=== PATIENT | male | born 1955 | race Caucasian/White ===

== ENCOUNTER 2017-08-27 04:26 | Emergency (ER) | payer OTHER ==
[~2017-08-27] VITALS: Ht 177.8 cm; Wt 126.1 kg
[2017-08-27 04:44] LABS: BASO % 0.4 % (0.0-1.0); EOS # 0.1 10*3/uL (0.0-0.4); EOS % 0.9 % (1.0-4.0); HEMATOCRIT 44.9 % (42.0-52.0); HEMOGLOBIN 15.1 g/dl (14.0-18.0); LYMPH % 12.4 % (27.0-41.0); MEAN CELL VOLUME 85.2 fl (80.0-94.0); MEAN CORPUSCULAR HGB 28.7 pg (27.0-31.0); MEAN CORPUSCULAR HGB CONC 33.6 g/dl (33.0-37.0); MEAN PLATELET VOLUME 10.9 fl (9.6-12.3); MONO # 0.5 10*3/uL (0.1-1.0); MONO % 6.8 % (3.0-9.0); NEUT # 6.3 10*3/uL (2.3-7.9); PLATELET COUNT AUTOMATED 98 10*3/uL (130-400); RED BLOOD COUNT 5.27 10*6/uL (4.50-5.90); RED CELL DISTRI WIDTH 14.2 % (0-14.5); WHITE BLOOD COUNT 7.9 10*3/uL (4.8-10.8)
[2017-08-27 04:54] LABS: ACT PARTIAL THROMBO TIME 20.9 SECONDS (20.8-31.5)
[2017-08-27 05:02] LABS: ALBUMIN 3.9 gm/dl (3.1-4.5); ALKALINE PHOSPHATASE 75 U/L (45-117); BUN 19 mg/dl (7-24); CHLORIDE 102 mmol/L (98-107); CREATININE 1.25 mg/dL (0.70-1.30); LIPASE 378 U/L (73-393); POTASSIUM 4.8 mmol/L (3.5-5.1); SGOT/AST 18 IU/L (3-35); SGPT/ALT 29 U/L (12-78); SODIUM 136 mmol/L (136-145); TOTAL PROTEIN 7.5 gm/dL (6.4-8.2)
[2017-08-27 06:08] LABS: BILIRUBIN NEGATIVE (NEGATIVE); BLOOD 3+ (NEGATIVE); CLARITY SL CLOUDY (CLEAR); COLOR YELLOW (YELLOW); GLUCOSE 3+ (NEGATIVE); KETONE NEGATIVE (NEGATIVE); LEUKO ESTERASE NEGATIVE (NEGATIVE); NITRITE NEGATIVE (NEGATIVE); PH 5.5 (5.0-9.0); SPECIFIC GRAVITY <= 1.005 (1.005-1.030); UROBILINOGEN 0.2 E.U./dl (0.2-1.0)
[2017-08-27 06:44] LABS: BACTERIA TRACE; RBC 16-20 rbc/hpf (0-2)
== END 2017-08-27 06:30 | disposition home or self-care (01) ==
LOC: ED 04:26
PROVIDERS: Student in an Organized Health Care Education/Training Program
DX: R10.9 Unspecified abdominal pain (principal); R11.2 Nausea with vomiting, unspecified; K92.1 Melena

== ENCOUNTER 2017-12-19 12:39 | Emergency (ER) | payer OTHER ==
[~2017-12-19] VITALS: Ht 177.8 cm; Wt 127.0 kg
[2017-12-19] MEDS ORDERED: ROBAXIN500 M1 PO (14:50)
[2017-12-19] MEDS ORDERED: MEDROL DOSEPAK4 MG PO (14:50)
== END 2017-12-19 15:17 | disposition home or self-care (01) ==
LOC: ED 12:39
DX: S39.012A Strain of muscle, fascia and tendon of lower back, initial encounter (principal); X50.1XXA Overexertion from prolonged static or awkward postures, initial encounter; Y93.89 Activity, other specified; Y92.89 Other specified places as the place of occurrence of the external cause; Y99.8 Other external cause status

== ENCOUNTER 2018-03-14 03:45 | Emergency (ER) | payer OTHER ==
[~2018-03-14] VITALS: Ht 177.8 cm; Wt 77.1 kg
--- NOTE | ~2018-03-14 | EKG ---
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
[~2018-03-14 03:45] MED LIST: MEDROL DOSEPAK4 MG PO; ROBAXIN500 M1 PO
[2018-03-14] MEDS ORDERED: GLIPIZIDE XL10 M1 PO (03:53)
[2018-03-14] MEDS ORDERED: ATORVASTATIN CA20 M1 PO (03:53)
[2018-03-14] MEDS ORDERED: METFORMIN ER500 MG PO (03:54)
[2018-03-14] MEDS ORDERED: METOPROLOL SUCC50 M1 PO (03:54)
[2018-03-14 04:21] LABS: BASO % 0.5 % (0.0-1.0); EOS # 0.1 10*3/uL (0.0-0.4); EOS % 1.7 % (1.0-4.0); HEMATOCRIT 42.6 % (42.0-52.0); HEMOGLOBIN 14.5 g/dl (14.0-18.0); LYMPH # 1.3 10*3/uL (1.3-4.4); LYMPH % 16.2 % (27.0-41.0); MEAN CELL VOLUME 84.4 fl (80.0-94.0); MEAN CORPUSCULAR HGB 28.7 pg (27.0-31.0); MEAN PLATELET VOLUME 10.5 fl (9.6-12.3); MONO # 0.8 10*3/uL (0.1-1.0); MONO % 9.7 % (3.0-9.0); NEUT # 5.8 10*3/uL (2.3-7.9); NEUT % 71.4 % (47.0-73.0); PLATELET COUNT AUTOMATED 130 10*3/uL (130-400); RED BLOOD COUNT 5.05 10*6/uL (4.50-5.90); RED CELL DISTRI WIDTH 13.9 % (0-14.5); WHITE BLOOD COUNT 8.2 10*3/uL (4.8-10.8)
[2018-03-14 04:38] LABS: ALBUMIN 3.3 gm/dl (3.1-4.5); ALKALINE PHOSPHATASE 79 U/L (45-117); BUN 15 mg/dl (7-24); CHLORIDE 107 mmol/L (98-107); CREATININE 0.85 mg/dL (0.70-1.30); SGOT/AST 16 IU/L (3-35); SGPT/ALT 26 U/L (12-78); SODIUM 138 mmol/L (136-145); TOTAL PROTEIN 7.4 gm/dL (6.4-8.2); TROPONIN I < 0.015 ng/ml (<0.045)
[2018-03-14] MEDS ORDERED: OMNICEF300 MG PO (04:52)
[2018-03-14] MEDS ORDERED: PREDNISONE10 MG PO (04:52)
== END 2018-03-14 05:16 | disposition home or self-care (01) ==
LOC: ED 03:45
PROVIDERS: Emergency Medicine Emergency Medical Services
DX: J20.9 Acute bronchitis, unspecified (principal); Z79.899 Other long term (current) drug therapy

== ENCOUNTER 2019-01-07 11:15 | Inpatient (IN) | payer OTHER ==
[~2019-01-07] VITALS: Ht 177.8 cm; Wt 119.8 kg
--- NOTE | ~2019-01-07 | CON ---
[place], [place] REPORT OF CONSULTATION NAME: VALENTINE CANNON UNIT #: [id number] ROOM: 404 DOCTOR: CORI OLIVEIRAHORACIO BIRTHDATE: [birth year] DOS: 01/08/2019 GASTROENDOSCOPIC REPORT INDICATIONS: A 63-year-old patient who has presented with epigastric pain, abdominal pain, black tarry stool. The patient has been taking 800 mg ibuprofen tablets for dental pain, then he has had dental extractions and 3 tablets of 800 a day. At the time of admission, his CBC differential, white blood cell was 9, H and H of 14 and 43. Lipase was normal. BNP 230. Lactic acid normal. Chest x-ray was self-limited pleural effusion. Comprehensive metabolic panel: GFR greater than 60. Liver function tests normal and was 1.0. CT scan of the abdomen and pelvis calcific gallstone, no biliary duct dilation. The cyst of the right kidney antral thickening, diverticulosis all has been noticed. Troponin remained normal. PAST MEDICAL HISTORY: Obesity, hypertension, coronary artery disease, depression, diabetes. PAST SURGICAL HISTORY: Teeth extraction and cardiac catheterization, bypass x 3 vessels. SOCIAL HISTORY: Past smoker. Nonalcohol consumer. FAMILY HISTORY: Noncontributory. ALLERGIES: No known medications. MEDICATIONS: List otherwise was reviewed. REVIEW OF SYSTEMS: HEENT: Denies double vision, blurred vision. RESPIRATORY: Denies shortness of breath. CARDIOVASCULAR: Denies chest pain. DIGESTIVE SYSTEM: Epigastric abdominal pain, black tarry stool. PHYSICAL EXAMINATION: VITAL SIGNS: Stable. HEENT: Benign. NECK: Supple, no thyromegaly. CHEST: Symmetric anatomy, equal expansion. No wheeze, no rhonchi. HEART: Normal sinus rhythm, no gallop, no murmur. ABDOMEN: Obese, large, soft. No hepato-organomegaly. Bowel sounds present. EXTREMITIES: No cyanosis, no pedal edema. NEUROLOGIC: Alert, oriented to time, place, person. IMPRESSION: Black tarry stool, most likely secondary to ibuprofen 800 mg 3 tablets a day for dental pain; however, his latest CBC differential has not significantly compromised. Latest H and H 13 and 41. PLAN AND DISCUSSION: Endoscopic assessment of upper GI tract, particularly in [place], [place] REPORT OF CONSULTATION NAME: VALENTINE CANNON UNIT #: [id number] ROOM: 404 DOCTOR: CORI OLIVEIRA,HORACIO BIRTHDATE: [birth year] view of the fact that the patient has thickened gastric pouch will be concerned if ibuprofen, induction of ulceration or hemorrhagic gastritis. OTHER ADJUNCTIVE DIAGNOSES: As outlined above in paragraph of past medical, surgical history. HORACIO PERSAUD MD CM:CONSTR:REPORT OF CONSULTATION 1115 01/08/19 1627 interface
--- NOTE | ~2019-01-07 | EKG ---
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1955 Requested By: KIARA PRIEST Order Number: [id number] Reading MD: Talon Davidson MD Measurements Intervals [place] Rate: 59 P: 12 ME: 214 QRS: 3 QRSD: 98 T: -1 QT: 437 QTc: 433 Interpretive Statements Sinus rhythm Borderline prolonged ME interval Probable anteroseptal infarct, old Borderline T abnormalities, inferior leads Compared to ECG 03/14/2018 04:24:39 Myocardial infarct finding now present Ventricular premature complex(es) no longer present T-wave abnormality still present Electronically Signed On 01-08-2019 17:29:17 PDT by Talon Davidson MD CM:EKGRPT:ELECTROCARDIOGRAM REPORT [id number] 1729 KIARA KENNEDY DRAFT REPORT KIARA PRIEST DO
--- NOTE | ~2019-01-07 | O ---
[place], [place] OPERATIVE NOTE NAME: VALENTINE CANNON UNIT #: [id number] ROOM: 404 DOCTOR: HORACIO PERSAUD MD BIRTHDATE: [birth year] DOS: 01/08/2019 INDICATIONS: The patient is a 63-year-old who has presented with chief complaint of black tarry stool. The patient has been on ibuprofen 800 mg tablets 3 times a day after his dental extractions. PROCEDURE: Today's procedure part of investigation is panendoscopy plus biopsies. PREMEDICATION: Propofol. SCOPE: Olympus forward-viewing gastroscope Q10 video. DESCRIPTION OF PROCEDURE: After putting the patient in left lateral position, application of lubricant to the scope, the scope was introduced. Thereafter, under direct visualization, advanced through the length of esophagus without difficulty. Gastric pouch was entered. Multiple antral ulcerations identified, photographed. Duodenum was entered. Multiple duodenal bulb and second part of the duodenum ulcers were identified, photographed. Antral biopsy obtained from margin of the ulcer. GI reflexion of the scope reveals cardia to be benign. The patient extubated, tolerated the procedure well. IMPRESSION: Multi gastroduodenal ulcers secondary to ibuprofen intake. PLAN AND DISCUSSION: Protonix 40 mg IV b.i.d., Carafate 2 grams slurry q.i.d. with holding ibuprofen. Clinical reassessment. HORACIO PERSAUD MD CM:OPRECORD:OPERATIVE NOTE 1131 1201 HORACIO PERSAUD MD 01/08/19 1159 interface
--- NOTE | ~2019-01-07 | EKG ---
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
--- NOTE | ~2019-01-07 | EKG ---
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
[~2019-01-07 11:15] MED LIST changes: +ATORVASTATIN CA20 M1 PO; +GLIPIZIDE XL10 M1 PO; +METFORMIN HCL500 M2 PO; +METOPROLOL SUCC50 M1 PO; +OMNICEF300 MG PO; +PREDNISONE10 MG PO; +ZITHROMAX250 MG PO
[2019-01-07 11:17] VITALS: BP 128/62
[2019-01-07 11:47] LABS: BASO % 0.3 % (0.0-1.0); EOS % 0.1 % (1.0-4.0); HEMATOCRIT 43.7 % (42.0-52.0); HEMOGLOBIN 14.4 g/dl (14.0-18.0); LYMPH # 0.6 10*3/uL (1.3-4.4); LYMPH % 6.5 % (27.0-41.0); MEAN CELL VOLUME 85.9 fl (80.0-94.0); MEAN CORPUSCULAR HGB 28.3 pg (27.0-31.0); MEAN PLATELET VOLUME 11.3 fl (9.6-12.3); MONO # 0.3 10*3/uL (0.1-1.0); NEUT # 8.4 10*3/uL (2.3-7.9); NEUT % 89.6 % (47.0-73.0); PLATELET COUNT AUTOMATED 123 10*3/uL (130-400); RED BLOOD COUNT 5.09 10*6/uL (4.50-5.90); RED CELL DISTRI WIDTH 14.2 % (0-14.5); WHITE BLOOD COUNT 9.4 10*3/uL (4.8-10.8)
[2019-01-07 12:01] LABS: ACT PARTIAL THROMBO TIME 23.5 SECONDS (20.0-32.1)
[2019-01-07 12:01] LABS: ALBUMIN 3.9 gm/dl (3.1-4.5); ALKALINE PHOSPHATASE 62 U/L (45-117); BUN 15 mg/dl (7-24); CHLORIDE 104 mmol/L (98-107); CREATININE 0.97 mg/dL (0.70-1.30); POTASSIUM 5.1 mmol/L (3.5-5.1); SGOT/AST 20 IU/L (3-35); SGPT/ALT 28 U/L (12-78); SODIUM 136 mmol/L (136-145)
[2019-01-07 12:02] LABS: TROPONIN I < 0.015 ng/ml (<0.045)
[2019-01-07 12:11] VITALS: BP 125/55
--- NOTE | 2019-01-07 12:20 | NUR ---
PT RESTING IN BED COMFORTABLY. IN NO ACUTE DISTRESS
[2019-01-07 16:01] VITALS: BP 132/74
[2019-01-07 16:34] VITALS: BP 126/62
[2019-01-07] MEDS ORDERED: TRESIBA FL200 UNIT/1 SQ (16:53)
[2019-01-07] MEDS ORDERED: CITALOPRAM20 MG PO (16:54)
[2019-01-07] MEDS ORDERED: AMLODIPINE BESY10 MG PO (16:55)
[2019-01-07] MEDS ORDERED: IMDUR SA30 MG PO (16:56)
[2019-01-07] MEDS ORDERED: LOSARTAN POTASS50 M1 PO (16:56)
[2019-01-07] MEDS ORDERED: AMOXICILLIN500 M2 PO (16:57)
[2019-01-07 17:05] VITALS: BP 114/60
--- NOTE | 2019-01-07 17:05 | NUR ---
A 63, admitted to , under the services of MARIAH Reina DO with a diagnosis of UGI BLEED. Chief complaint is ABDOMINAL PAIN. Patient arrived via stretcher from ER. Monitor applied. Initial assessment completed. Vital signs taken and recorded. MARIAH REINA DO notified of admission to the unit. Orders received. See assessment for past medical history, medications and allergies. Patient and/or family oriented to unit. [facility] visitation policy reviewed. Clothing/patient valuable form completed. SHANI SAN
[2019-01-07] MEDS ORDERED: ASPIRIN ADULT L81 M1 PO (18:30)
--- NOTE | 2019-01-07 18:38 | NUR ---
DR. PERSAUD AWARE OF CONSULT.
[2019-01-07 20:00] VITALS: BP 126/56
--- NOTE | 2019-01-07 20:09 | NUR ---
PT. REMINDED OF NPO STATUS FOR EGD IN AM
[2019-01-08] VITALS (9 sets, daily range): BP systolic 123–158; BP diastolic 57–83
[2019-01-08 07:04] LABS: BASO # 0.1 10*3/uL (0.0-0.1); BASO % 0.6 % (0.0-1.0); EOS # 0.1 10*3/uL (0.0-0.4); EOS % 1.1 % (1.0-4.0); HEMATOCRIT 41.5 % (42.0-52.0); HEMOGLOBIN 13.6 g/dl (14.0-18.0); LYMPH # 1.5 10*3/uL (1.3-4.4); LYMPH % 18.4 % (27.0-41.0); MEAN CELL VOLUME 84.7 fl (80.0-94.0); MEAN CORPUSCULAR HGB 27.8 pg (27.0-31.0); MEAN CORPUSCULAR HGB CONC 32.8 g/dl (33.0-37.0); MONO # 0.6 10*3/uL (0.1-1.0); MONO % 7.5 % (3.0-9.0); PLATELET COUNT AUTOMATED 125 10*3/uL (130-400); RED CELL DISTRI WIDTH 14.4 % (0-14.5); WHITE BLOOD COUNT 8.4 10*3/uL (4.8-10.8)
[2019-01-08 07:35] LABS: BUN 12 mg/dl (7-24); CHLORIDE 108 mmol/L (98-107); CHOLESTEROL 83 mg/dL (<200); CREATININE 0.97 mg/dL (0.70-1.30); HDL CHOLESTEROL 33 mg/dl (40-60); LDL CHOLESTEROL 28 mg/dL (9-159); SODIUM 140 mmol/L (136-145); TRIGLYCERIDES 112 mg/dl (<150); VLDL CHOLESTEROL 22 mg/dL (6-40)
[2019-01-08 07:43] LABS: VITAMIN D, 25-HYDROXY 21.2 ng/mL (30-100)
[2019-01-08 07:47] LABS: POTASSIUM 3.7 mmol/L (3.5-5.1)
--- NOTE | 2019-01-08 09:00 | NUR ---
Bed Rubber in to talk to patient. Patient states lives at home with . There are few steps in the home. Physician: clemente pro Pharmacy: [facility] Home health services: none Patient's level of ADLs: INDEPENDENT Patient has working utilities: all working DME: none Follow-up physician's appointment after d/c: will be made by hospitalist nurse director upon discharge Does patient want to access PORTAL?: no Discharge plan discussed with patient, he states he lives at home with , is independentin adls and ambulation, states he will return home when medically stable and denies any home needs. ALYSSA HAMLIN
--- NOTE | 2019-01-08 09:33 | NUR ---
Occupational therapy orders received and chart reviewed. Patient admitted for stomach pain with a history of CAD, depression, and tooth extraction. Patient stated he is independent with ADLs, functional transfers, and mobility. Patient stated he has not had any LOBs or decrease in strength. Patient stating he does not need OT services. Patient notified of d/c from OT orders and was agreeable and did not have any questions. Thank you. Daphnie Burdick, OTR/L
--- NOTE | 2019-01-08 09:40 | NUR ---
PHYSICAL THERAPY Physical therapy screen completed. Pt is independent with ambulation without an AD and independent with ADLs. Pt has no concerns for returning home. No PT needs at this time. Thank you Kath Crandall, PT, DPT
[2019-01-08] MEDS ORDERED: PROTONIX TR40 M1 PO (19:15)
[2019-01-08] MEDS ORDERED: CARAFATE1 G1 PO (19:15)
--- NOTE | 2019-01-08 19:41 | NUR ---
Discharge instructions reviewed with patient/family. Patient receptive and verbalizes understanding. Follow-up care arranged. Written instructions given to patient/family. 2 IV SITES REMOVED. PATIENT AND AMBULATED OFF FLOOR WITH INSTRUCTIONS. MICHELINE BATISTA
== END 2019-01-08 22:06 | disposition home or self-care (01) | DRG 378 ==
LOC: ED 11:15 → EDHOLD 16:14 → 4E 16:14
PROVIDERS: Emergency Medicine; Student in an Organized Health Care Education/Training Program; ADMIT Internal Medicine
PROC: 0DB78ZX Excision of Stomach, Pylorus, Via Natural or Artificial Opening Endoscopic, Diagnostic (ICD-10-PCS; principal; 2019-01-08)
DX: K25.4 Chronic or unspecified gastric ulcer with hemorrhage (principal); I25.810 Atherosclerosis of coronary artery bypass graft(s) without angina pectoris; K29.71 Gastritis, unspecified, with bleeding; K26.4 Chronic or unspecified duodenal ulcer with hemorrhage; K29.81 Duodenitis with bleeding; E11.65 Type 2 diabetes mellitus with hyperglycemia; D72.810 Lymphocytopenia; F33.41 Major depressive disorder, recurrent, in partial remission; E87.8 Other disorders of electrolyte and fluid balance, not elsewhere classified; R10.9 Unspecified abdominal pain; E83.41 Hypermagnesemia; I10 Essential (primary) hypertension; K80.80 Other cholelithiasis without obstruction; N28.1 Cyst of kidney, acquired; K57.91 Diverticulosis of intestine, part unspecified, without perforation or abscess with bleeding; E66.9 Obesity, unspecified; T39.315A Adverse effect of propionic acid derivatives, initial encounter; Y92.89 Other specified places as the place of occurrence of the external cause; Z79.4 Long term (current) use of insulin; Z95.1 Presence of aortocoronary bypass graft; Z87.891 Personal history of nicotine dependence; Z82.49 Family history of ischemic heart disease and other diseases of the circulatory system; Z83.3 Family history of diabetes mellitus; Z80.8 Family history of malignant neoplasm of other organs or systems; Z84.89 Family history of other specified conditions; Z79.82 Long term (current) use of aspirin; Z79.899 Other long term (current) drug therapy; Z68.37 Body mass index [BMI] 37.0-37.9, adult

== ENCOUNTER 2022-06-28 23:02 | Emergency (ER) | payer OTHER ==
[~2022-06-28] VITALS: Ht 167.6 cm; Wt 104.3 kg
[~2022-06-28 23:02] MED LIST changes: +AMLODIPINE BESY10 MG PO; +AMOXICILLIN500 M2 PO; +ASPIRIN ADULT L81 M1 PO; +CARAFATE1 G1 PO; +CITALOPRAM20 MG PO; +IMDUR SA30 MG PO; +LOSARTAN POTASS50 M1 PO; +PROTONIX TR40 M1 PO; +TRESIBA FL200 UNIT/1 SQ
[2022-06-28 23:41] LABS: BASO % 0.3 % (0.0-1.0); EOS # 0.6 10*3/uL (0.0-0.4); EOS % 8.2 % (1.0-4.0); HEMATOCRIT 38.4 % (42.0-52.0); LYMPH # 1.7 10*3/uL (1.3-4.4); MEAN CELL VOLUME 88.1 fl (80.0-94.0); MEAN CORPUSCULAR HGB 28.9 pg (27.0-31.0); MEAN CORPUSCULAR HGB CONC 32.8 g/dl (33.0-37.0); MEAN PLATELET VOLUME 11.7 fl (9.6-12.3); MONO # 0.6 10*3/uL (0.1-1.0); MONO % 7.9 % (3.0-9.0); NEUT # 4.4 10*3/uL (2.3-7.9); NEUT % 60.2 % (47.0-73.0); PLATELET COUNT AUTOMATED 97 10*3/uL (130-400); RED BLOOD COUNT 4.36 10*6/uL (4.50-5.90); RED CELL DISTRI WIDTH 15.7 % (0-14.5); WHITE BLOOD COUNT 7.3 10*3/uL (4.8-10.8)
[2022-06-28 23:56] LABS: POTASSIUM 4.4 mmol/L (3.4-5.1)
[2022-06-29 00:51] LABS: ACT PARTIAL THROMBO TIME 26.2 SECONDS (20.0-32.1); INTERNATIONAL NORM RATIO 1.1 (2.0-3.5)
== END 2022-06-29 00:52 | disposition short-term general hospital (02) ==
LOC: ED 23:02
PROVIDERS: Emergency Medicine
DX: R00.1 Bradycardia, unspecified (principal); I10 Essential (primary) hypertension; R42 Dizziness and giddiness; E11.9 Type 2 diabetes mellitus without complications; Z98.890 Other specified postprocedural states; Z87.891 Personal history of nicotine dependence